=== PATIENT | male | born 1980 | race Caucasian/White ===

== ENCOUNTER 2017-06-23 10:00 | Inpatient (IN) | payer OTHER ==
[~2017-06-23] VITALS: Ht 177.8 cm; Wt 81.6 kg
--- NOTE | ~2017-06-23 | CO ---
Unit #: [id number] #: [id number] Patient: JESSEE MELARA [id number] [place] [address] [id number] MR#: [id number] NAME: JESSEE MELARA. ROOM: P171 Age: 37 Sex: M Admission Date: 06/23/2017 : 1980 Attending Physician: Diego Govea M.D. Primary Care Physician: Generic Doctor Not In System CONSULTATION REPORT REASON FOR CONSULTATION Bug bites. SUBJECTIVE The patient is a 37-year-old, male who states [facility] He notes that he has multiple bug bites on his lower extremities, blister on his right heel and some bug bites on his lower back. Some of these bug bites are scabbed over where he has been scratching. He states it is painful and itchy. He denies any nausea, vomiting, fever, or chills. OBJECTIVE GENERAL: The patient is awake and alert, in no acute distress. VITAL SIGNS: Stable. LUNGS: Clear. CARDIOVASCULAR: S1 and S2. SKIN: Bug bites noted on lower extremities and lower back and a blister on his left heel. Some of the bites are scabbed over. No odor or pus is noted. NEUROLOGIC: Alert and oriented x3. ASSESSMENT Bug bites. PLAN At this time, we will start the patient on Keflex 500 mg p.o. t.i.d. x5 days. We will start Claritin 10 mg p.o. daily in the morning. We will start Zantac 150 mg p.o. b.i.d. We will add Benadryl 25 mg p.o. at night for p.r.n. for itching. The patient will be started on triamcinolone cream 1% apply b.i.d. to affected areas and he has been advised to keep the area clean and dry. Dictated by... Nayla Smith A.P.R.N. for Dariela Montemayor M.D. AM/puneet TD: 06/23/2017 19:40 JOB #: [id number] Unit #: [id number] #: [id number] Patient: JESSEE MELARA CONSULTATION REPORT Page 1 of 1 X Nayla Smith APRN CONSULTATION REPORT
--- NOTE | ~2017-06-23 | HP ---
Unit #: [id number] #: [id number] Patient: JESSEE MELARA [id number] [facility] [address] [place] [address] [id number] MR#: [id number] NAME: JESSEE MELARA. ROOM: P171 Age: 37 Sex: M Admission Date: 06/23/2017 : 1980 Attending Physician: Diego Govea M.D. Admitting Physician: Diego Govea M.D. Primary Care Physician: Generic Doctor Not In System HISTORY AND PHYSICAL HISTORY OF PRESENT ILLNESS The patient is a 37-year-old man who has been admitted to [facility] for detox. PAST MEDICAL HISTORY Alcohol related seizures. PAST SURGICAL HISTORY None. ALLERGIES No known allergies. SOCIAL HISTORY The patient endorses alcohol and illicit drug use. FAMILY HISTORY Medically noncontributory. REVIEW OF SYSTEMS CONSTITUTIONAL: Denies fever or chills. HEENT: Denies sore throat, ear pain or runny nose. CHEST: Denies shortness of breath, cough. No hemoptysis. GASTROINTESTINAL: Denies nausea, vomiting, diarrhea or chronic constipation. ENDOCRINE: Denies increased thirst or urination. Denies recent significant weight loss or gain. GENITOURINARY: Denies dysuria, frequency, or hematuria. SKIN: Endorses a rash. HEMATOLOGIC: Denies increased bleeding or bruising. MUSCULOSKELETAL: Denies hot, swollen joints. No generalized muscle pain. NEUROLOGIC: Denies problems with speech, vision, numbness, tingling or loss of bowel or bladder control. CURRENT MEDICATIONS None. PHYSICAL EXAMINATION GENERAL: Patient is awake, alert, in no acute distress. VITAL SIGNS: Temperature 98.6, heart rate 116, blood pressure 142/98. HEIGHT: 5 feet 10. WEIGHT: 180 pounds. HEENT: Atraumatic, normocephalic. Pupils equal, round and reactive to Unit #: [id number] #: [id number] Patient: JESSEE MELARA light. EOMs intact. No drainage from ears or nares. NECK: Supple, trachea is midline. HEART: Regular rate and rhythm. LUNGS: Clear. ABDOMEN: Soft, nontender, nondistended. : Not done. EXTREMITIES: No clubbing, edema or cyanosis. SKIN: Warm, dry, bug bites and scabs noted all over his lower extremities and lower back. Blister on right heel. NEUROLOGICAL: Within normal limits. Cranial nerves II through XII intact. No focal deficits. Motor functioning grossly normal. Moves all extremities well. Coordination and gait normal. Deep tendon reflexes intact. IMPRESSION Psychiatric admission. RECOMMENDATIONS PSYCHIATRIC: Will be per psychiatry. MEDICAL: See no contraindication to participate in facility's activities. MEDICAL PROGNOSIS Fair. MEDICAL CONDITION Stable. Dictated by... Nayla Smith A.P.R.N. for Dariela Montemayor M.D. AM/birdie TD: 06/23/2017 15:02 JOB #: [id number] HISTORY AND PHYSICAL Page 1 of 1 X Nayla Smith ACCOUNT SERVICE ASSOCIATE X HISTORY AND PHYSICAL
--- NOTE | ~2017-06-23 | PN ---
Unit #: [id number] #: [id number] Patient: JESSEE MELARA [id number] [facility] [address] [place] [address] [id number] MR#: [id number] NAME: JESSEE MELARA. ROOM: P171 Age: 37 Sex: M Admission Date: 06/23/2017 : 1980 Attending Physician: Diego Govea M.D. Admitting Physician: Diego Govea M.D. Primary Care Physician: Generic Doctor Not In System [facility] PROGRESS NOTES DATE 06/26/2017 DISCUSSION The patient is working through the social media project manager regarding post-discharge disposition options. His detox continues with some issues of nausea continuing to be problematic. Dictated by... Diego Govea M.D. CB/bzg TD: 06/26/2017 14:22 JOB #: [id number] [facility] PROGRESS NOTES Page 1 of 1 X Diego Govea MD X PROGRESS NOTE
--- NOTE | ~2017-06-23 | PN ---
Unit #: [id number] #: [id number] Patient: JESSEE MELARA [id number] [facility] [address] [place] [address] [id number] I MR#: [id number] NAME: JESSEE MELAAR. ROOM: P171 Age: 37 Sex: M Admission Date: 06/23/2017 : 1980 Attending Physician: Diego Govea M.D. Admitting Physician: Diego Govea M.D. Primary Care Physician: Tracy Doctor Not In System [facility] PROGRESS NOTES DATE 06/27/2017 DISCUSSION The patient continues active participation within the therapeutic milieu, and his detox is coming to its conclusion. We expect a.m. discharge. Dictated by... Diego Govea M.D. CB/bzg TD: 06/27/2017 15:01 JOB #: [id number] [facility] PROGRESS NOTES Page 1 of 1 X Diego Govea MD X PROGRESS NOTE
--- NOTE | ~2017-06-23 | DS ---
Unit #: [id number] #: [id number] Patient: JESSEE MELARA [id number] [place] [address] [id number] I MR#: [id number] NAME: JESSEE MELARA. ROOM: 71 Age: 37 Sex: M Admission Date: 06/23/2017 : 1980 Discharge Date: 06/28/2017 Attending Physician: Diego Govea M.D. Primary Care Physician: Generic Doctor Not In System DISCHARGE SUMMARY REASON FOR ADMISSION The patient is a 37-year-old white male, admitted for alcohol detox. HOSPITAL COURSE The patient was admitted to the [facility] and placed on routine detoxification protocol for alcohol. He participated actively within the therapeutic milieu and by 06/28/2017 was in bright spirits and requested discharge and it was so ordered. During his stay in the hospital the patient was continued on previously prescribed Claritin and Pepcid and was begun on Celexa 20 mg daily for depression. DISCHARGE DIAGNOSES Coward I Dysthymic disorder. Alcohol use disorder. Coward II Coward III Gastroesophageal reflux disease. Environmental allergies. Coward IV Coward V DISPOSITION ON DISCHARGE The patient is discharged on the following medications: 1. Claritin 10 mg daily for environmental allergies 2. Pepcid 20 mg daily for gastroesophageal reflux disease 3. Benadryl 25 mg at h.s. p.r.n. insomnia 4. Aristocort 0.1% applied twice daily to affected area for rash 5. Celexa 20 mg daily for depression PROGNOSIS The patient's prognosis is considered fair. DIET AND ACTIVITY No dietary or physical restrictions were placed on the patient at the time of discharge. The followup will take place through the auspices of [facility]. Unit #: [id number] #: [id number] Patient: JESSEE MELARA Dictated by... Diego Govea M.D. CB/pati TD: 06/29/2017 08:43 JOB #: [id number] DISCHARGE SUMMARY Page 1 of 1 X Diego Govea MD X DISCHARGE SUMMARY
--- NOTE | ~2017-06-23 | PA ---
Unit #: [id number] #: [id number] Patient: JESSEE MELARA [id number] [place] [address] [id number] MR#: [id number] NAME: JESSEE MELARA. ROOM: P171 Age: 37 Sex: M Admission Date: 06/23/2017 : 1980 Date of Assessment: 06/24/2017 Attending Physician: Diego Govea M.D. Admitting Physician: Diego Govea M.D. Primary Care Physician: Generic Doctor Not In System PSYCHIATRIC ASSESSMENT IDENTIFYING INFORMATION The patient is a 37-year-old white male admitted to the [address] [place] [address] for alcohol detox. CHIEF COMPLAINT None given. INFORMANT(S) The patient, patient's reliability is fair. HISTORY OF PRESENT ILLNESS The patient is a 37-year-old white male admitted to the [facility] after presenting to the [facility]. The patient is reporting increasing alcohol use and is fearful that he would "drink himself to ." The patient is sleeping today soundly and cannot be aroused for interview. He does have a history of alcohol withdrawal related seizures per report and the chart seems to indicate that the patient has a history of MRSA dermatologic infection for which he is currently being treated. The patient cannot be aroused for interview during today's attempted interview. His blood alcohol on admission at [facility] was 0.145. PAST PSYCHIATRIC HISTORY Not obtained. PAST MEDICAL HISTORY As noted previously the patient is being treated for a MRSA skin wound. MEDICATIONS 1. Keflex 2. Claritin 3. Zantac 4. Benadryl 5. Triamcinolone ALLERGIES None reported. FAMILY HISTORY Noncontributory. SOCIAL HISTORY The patient is presently homeless and unemployed. He reports alcohol use as noted previously but does not quantify mental status examination. At Unit #: [id number] #: [id number] Patient: JESSEE MELARA this time reveals the patient to be a disheveled soundly sleeping white male. Attempts to arouse the patient are unsuccessful. The patient's assets to be assessed. Liabilities ongoing substance use. DIAGNOSTIC IMPRESSION 1. Alcohol use disorder. 2. MRSA. 3. Infected skin wound. PLAN The patient will continue on suicidal precautions with a routine detoxification protocol for alcohol in place. He will participate in appropriate chin and milieu activities. ESTIMATED LENGTH OF STAY Three to five days with followup to take place through the [facility] of [facility]. I will ask the patient's vp digital marketing social media and crm to see him regarding the possibility of residential chemical dependence treatment. Dictated by... Diego Govea M.D. DAVID/ravi TD: 06/24/2017 23:02 JOB #: [id number] PSYCHIATRIC ASSESSMENT Page 1 of 1 X Diego Govea MD X PSYCHIATRIC ASSESSMENT
--- NOTE | ~2017-06-23 | PN ---
Unit #: [id number] #: [id number] Patient: JESSEE MELARA [id number] [facility] [address] [place] [address] [id number] MR#: [id number] NAME: JESSEE MELARA. ROOM: P171 Age: 37 Sex: M Admission Date: 06/23/2017 : 1980 Attending Physician: Diego Govea M.D. Admitting Physician: Diego Govea M.D. Primary Care Physician: Generic Doctor Not In System [facility] PROGRESS NOTES ADDENDUM Diego Govea dictating an addendum to the previously dictated psychiatric evaluation on Jessee Melara, patient [id number]. The addendum should read as follows: The patient is not in fact being treated for an MRSA infection but is in fact being treated for multiple "bug bites" which are infected. Dictated by... Diego Govea M.D. CB/ravi TD: 06/25/2017 00:24 JOB #: [id number] [facility] PROGRESS NOTES Page 1 of 1 X Diego Govea MD X PROGRESS NOTE
[2017-06-24 11:26] LABS: BASOPHIL% 0.8 % (0-2.5); EOSINOPHIL# 0.1 X10e3 (0-0.7); EOSINOPHIL% 1.7 % (0.0-7.0); HEMATOCRIT 39.4 % (38.0-50.0); HEMOGLOBIN 13.3 gm/dL (13.0-16.0); LYMPHOCYTE# 1.1 X10e3 (1.0-3.5); LYMPHOCYTE% 30.4 % (17.0-45.0); MEAN CELL VOLUME 94.7 FL (83-96); MEAN CORPUSCULAR HGB CONC 33.8 g/dL (30-36); MEAN PLATELET VOLUME 10.2 FL (6.5-11.5); MONOCYTE# 0.3 X10e3 (0-1.0); MONOCYTE% 8.7 % (3.0-12.0); NEUTROPHIL% 58.4 % (40-75); PLATELET COUNT 63 X10e3 (140-420); RED BLOOD COUNT 4.16 X10e (3.90-5.60); RED CELL DISTRIBUTION WIDTH 13.6 % (11.0-15.5); WHITE BLOOD COUNT 3.5 X10e3 (4.0-10.5)
[2017-06-24 11:37] LABS: ALBUMIN SERUM 3.2 g/dL (3.5-5.0); BILIRUBIN,TOTAL 0.9 mg/dL (0.2-2.0); BUN/CREATININE RATIO 16.66; CALCIUM SERUM 8.8 mg/dL (8.4-10.2); CREATININE SERUM 0.6 mg/dL (0.6-1.4); GLOM FILT RATE Estimated 127.6 mL/min (>60); POTASSIUM 3.2 mmol/L (3.5-5.1); PROTEIN TOTAL SERUM 5.9 g/dL (6.0-8.3)
[2017-06-24 11:46] LABS: DIFF IND YES
[2017-06-24 11:49] LABS: PLATELET ESTIMATE DECREASED (NORMAL)
[2017-06-27 09:46] LABS: URINE APPEARANCE CLEAR; URINE BILIRUBIN NEG (NEG); URINE BLOOD NEG (NEG); URINE COLOR DK YELLOW; URINE GLUCOSE NEG (NEG); URINE KETONE NEG (NEG); URINE LEUKOCYTE ESTERASE NEG (NEG); URINE NITRATE NEG (NEG); URINE PH 6.5 (5-8); URINE PROTEIN NEG (NEG); URINE SPECIFIC GRAVITY 1.021 (1.003-1.035); URINE UROBILINOGEN 0.2 MG/DL (NEG)
[2017-06-27 10:26] LABS: AMPHETAMINE NEG (NEG); BARBITURATES NEG (NEG); BENZODIAZEPINES POS (NEG); COCAINE NEG (NEG); MARIJUANA NEG (NEG); OPIATES NEG (NEG); TRICYCLIC ANTIDEPRESSANTS NEG (NEG); U METHADONE NEG (NEG)
== END 2017-06-28 16:00 | DRG 897 ==
LOC: P1E 12:26
PROVIDERS: Specialist
PROC: HZ2ZZZZ Detoxification Services for Substance Abuse Treatment (ICD-10-PCS; principal; 2017-06-24)
DX: F10.20 Alcohol dependence, uncomplicated (principal); A49.02 Methicillin resistant Staphylococcus aureus infection, unspecified site; F34.1 Dysthymic disorder; K21.9 Gastro-esophageal reflux disease without esophagitis
CPT/HCPCS: 80053; 80307; 81003; 85025